=== PATIENT | male | born 1995 | race Caucasian/White ===

== ENCOUNTER 2017-10-08 10:45 | Day surgery (SDC) | payer BC ==
[2017-10-08] MEDS: SOD CHLORIDE 0.9% 1,000 ML IV (06:30)
[~2017-10-08 10:45] MED LIST: CEFAZOLIN 2 GM/50 ML (PMX) 50 ML IVPB; PROPOFOL 200 MG INJ
[2017-10-08] MEDS ORDERED: FENTAnyl 50 MCG/ML VIAL (12:26)
[2017-10-08] MEDS ORDERED: MIDAZOLAM 1 MG/ML 2 ML INJ (12:26)
[2017-10-08] MEDS ORDERED: PROPOFOL 20 ML (12:29)
[2017-10-08] MEDS ORDERED: SUCCINYLCHOLINE CHLORIDE 100 MG/5 ML SYG IV (12:29)
[2017-10-08] MEDS ORDERED: LIDOCAINE 2% (SDV) 5 ML INJ (12:29)
[2017-10-08] MEDS ORDERED: ONDANSETRON 4 MG INJ IV (12:30)
[2017-10-08] MEDS ORDERED: PROCHLORPERAZINE 10 MG INJ IV (12:30)
[2017-10-08] MEDS ORDERED: FENTAnyl 50 MCG/ML VIAL IV ×3 (12:30)
[2017-10-08] MEDS ORDERED: DIPHENHYDRAMINE 50 MG INJ IV (12:30)
[2017-10-08] MEDS ORDERED: HYDROmorphONE (0.2 MG/ML) 10ML SYG IV ×2 (12:30)
[2017-10-08] MEDS ORDERED: MEPERIDINE 25 MG INJ IV (12:30)
[2017-10-08] MEDS ORDERED: OXYCODONE/ACETAMINOPHEN (5/325) TAB PO ×2 (12:30)
[2017-10-08] MEDS ORDERED: DEXAMETHASONE 4 MG/ML 1 ML INJ (13:04)
[2017-10-08] MEDS ORDERED: FAMOTIDINE 20 MG INJ (13:04)
[2017-10-08] MEDS ORDERED: ONDANSETRON 4 MG INJ (13:04)
[2017-10-08] MEDS ORDERED: CEFAZOLIN 1 GM INJ (13:10)
[2017-10-08] MEDS ORDERED: ROCURONIUM 50 MG INJ (13:10)
[2017-10-08] MEDS ORDERED: HYDROmorphONE 2 MG/ML SYG (13:21)
[2017-10-08] MEDS: BUPIVACAINE 0.5%/EPI (SDV) 30 ML INJ (13:30)
[2017-10-08] MEDS: METHYLENE BLUE 1% 10 ML INJ (13:30)
[2017-10-08] MEDS ORDERED: SUGAMMADEX SODIUM 200 MG/2 ML VIAL IV ×2 (14:07→14:29)
[2017-10-08] MEDS ORDERED: EPHEDrine SULFATE 50 MG/5 ML SYG (14:18)
[2017-10-08] MEDS ORDERED: KETOROLAC 30 MG INJ (14:37)
[2017-10-08] MEDS ORDERED: HYDROCODONE/APAP (5/325) TAB PO (15:00)
[2017-10-08] MEDS: HYDROmorphONE (0.2 MG/ML) 10ML SYG IV (15:22)
== END 2017-10-08 16:54 | disposition home or self-care (01) ==
LOC: SDS 10:45
DX: L05.91 Pilonidal cyst without abscess (principal); F17.200 Nicotine dependence, unspecified, uncomplicated
CPT/HCPCS: 11772; 88304